=== PATIENT | male | born 1950 | race Caucasian/White ===

== ENCOUNTER 2016-05-16 11:32 | Inpatient (IN) | payer BC ==
[~2016-05-16] VITALS: Ht 175.3 cm; Wt 81.4 kg
[~2016-05-16 11:32] MED LIST: AMLO-114 PO; BUPR150T47 PO; DOCU-94 PO; DRGTP25; DXM/4 PO; ENOX120I SQ; HYDR-5688 PO; MULT-506 PO; NYSS/ PO; OMEGA; ONDA8TAB6 PO; PRLSR20 PO; SPIR50TA2 PO; VITD
[2016-05-16] MEDS ORDERED: PIPERACILLIN/TAZOBACTAM 4.5 GM/100ML D5W IV STA (12:36)
[2016-05-16 13:17] LABS: BASO % 0.5 %; BASO ABS # 0.02 K/uL (0-0.2); COMPLETE YES; EOS % 2.3 %; HEMATOCRIT 35.5 % (42-52); IG% 0.5 %; LYMPH % 13.7 %; LYMPH ABS # 0.54 K/uL (1.2-3.4); MEAN CELL VOLUME 95.7 fL (80-100); MEAN CORPUSCULAR HEMOGLOBIN 31.8 pg (25-34); MEAN CORPUSCULAR HGB CONC 33.2 g/dl (32-36); MEAN PLATELET VOLUME 10.7 fL (7.4-10.4); MONO % 12.2 %; NEUT % 70.8 %; PLATELET COUNT 187 K/uL (130-400); RED BLOOD COUNT 3.71 M/uL (4.7-6.1); WHITE BLOOD COUNT 3.94 K/uL (4.8-10.8)
--- NOTE | 2016-05-16 13:22 | DIAGNOSTIC IMAGING REPORT ---
CHEST ONE VIEW PORTABLE CLINICAL HISTORY: Sepsis COMPARISON STUDY: 05/02/2016 FINDINGS: The cardiac and mediastinal contours are normal. There is no evidence of focal pulmonary consolidation. There is no evidence of failure. No pleural effusions are visualized.[ The previously queried right midlung zone nodule is not visualized. This may have represented a summation IMPRESSION: No active disease in the chest. Electronically signed by: Marc Cooper M.D. 05/16/2016 1:20 PM Dictated Date/Time: 05/16/2016 1:20 PM
[2016-05-16 13:30] LABS: PARTIAL THROMBOPLASTIN RATIO 1.1; PROTHROMBIN TIME (PATIENT) 10.7 SECONDS (9.0-12.0)
[2016-05-16 13:41] LABS: CREATININE 1.2 mg/dl (0.60-1.40)
[2016-05-16 13:42] LABS: BUN/CREATININE RATIO 23.2 (10-20); CALCIUM 9.3 mg/dl (8.5-10.1); POTASSIUM 4.2 mmol/L (3.5-5.1)
[2016-05-16 13:52] LABS: ALB/GLOB RATIO 0.7 (0.9-2); THYROID STIMULATING HORMONE 2.53 uIu/ml (0.300-4.500)
[2016-05-16] MEDS ORDERED: POLYETHYLENE (MIRALAX) 17 GM PACK PO PRN (15:15)
[2016-05-16] MEDS ORDERED: MAGNESIUM HYDROXIDE SUSP 30 ML UDC PO PRN (15:15)
[2016-05-16] MEDS ORDERED: ACETAMINOPHEN 325 MG TAB PO PRN (15:15)
[2016-05-16] MEDS ORDERED: ONDANSETRON INJ 2 MG/ML 2 ML VIAL IV PRN (15:15)
[2016-05-16] MEDS ORDERED: HYDROCODONE/ACETAMOPHEN 5/325MG TAB PO PRN (15:15)
[2016-05-16] MEDS ORDERED: ALUMINUM/MAGNESIUM/SIMETH (MAALOX MAX) 30 ML UDC PO PRN (15:15)
[2016-05-16 15:31] VITALS: O2SAT 96
--- NOTE | 2016-05-16 15:47 | EMERGENCY ROOM VISIT NOTE ---
History Report prepared by Emre: Garrett Noel Under the Supervision of: Dr. Dago Dotson M.D. First contact with patient: 12:31 Chief Complaint: SWELLING TO EXTREMITY Stated Complaint: SWELLING/REDNESS TO BOTH ANKLES History of Present Illness The patient is a 66 year old male who presents to the Emergency Room with complaints of persistent lower extremity erythema and edema starting 5 days ago. He reports constant chills occurring for the past few days. He also complains of an intermittent cough and shortness of breath. He denies any fevers , nausea, vomiting, or any other complaints. The patient is receiving radiation therapy for liver cancer. He is on a blood thinner. Source of History: patient Onset: 5 days ago Position: other (lower extremity) Quality: other (erythema and edema) Timing: other (persistent) Associated Symptoms: + SOB, + chills, + cough, No fevers, No nausea, No vomiting Review of Systems See HPI for pertinent positives & negatives. A total of 10 systems reviewed and were otherwise negative. 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 Family History Cancer Social History Smoking Status: Current Every Day Smoker Alcohol Use: none Drug Use: none Marital Status: Housing Status: lives with family Occupation Status: retired Current/Historical Medications Scheduled Amlodipine (Norvasc), 10 MG PO DAILY Bupropion (Zyban), 150 MG PO BID Docusate Sodium (Colace), 1-2 CAP PO DAILY Enoxaparin (Lovenox), 120 MG SQ DAILY Fentanyl (Fentanyl), PATCH Q72H Multivitamin (Multivitamin), 1 TAB PO DAILY Nystatin (Nystatin Suspension), 5 ML PO QID Omeprazole (Prilosec), 20 MG PO DAILY Spironolactone (Aldactone), 50 MG PO BID [omega 3 with vitD], 1 CAP DAILY Scheduled PRN Hydrocodone/Acetaminophen 5MG/325MG ([place] 5MG/325MG), 1 TABLET PO Q4H PRN for Pain Ondansetron Hcl (Zofran), 8 MG PO Q8 PRN for Nausea Allergies Coded Allergies: No Known Allergies (Verified , 05/16/16) Physical Exam Vital Signs Date Time Temp Pulse Resp B/P Pulse Ox O2 Delivery O2 Flow Rate FiO2 05/16/16 13:48 89 18 115/75 98 Room Air 05/16/16 13:45 98 Room Air 05/16/16 11:39 36.9 87 18 129/71 98 Room Air Physical Exam GENERAL: Patient is in no acute distress. HEENT: No acute trauma, normocephalic atraumatic, mucous membranes moist, no nasal congestion, no scleral icterus. NECK: No stridor, no adenopathy, no meningismus, trachea is midline. LUNGS: Clear to auscultation bilaterally, no wheeze, no rhonchi, breath sounds equal. HEART: Without murmurs gallops or rubs, regular rate and rhythm. ABDOMEN: Soft, nontender, bowel sounds positive, no hernias, no peritonitis. EXTREMITIES: Bilateral pedal edema with bilateral erythema from the feet to just below the knees, no drainage, there is warmth. NEUROLOGIC: Oriented x 3, no acute motor or sensory deficits, no focal weakness. SKIN: No rash, mild jaundice, no diaphoresis. Medical Decision & Procedures ER Provider Diagnostic Interpretation: X-ray results as stated below per interpretation by me and the radiologist: CHEST ONE VIEW PORTABLE CLINICAL HISTORY: Sepsis COMPARISON STUDY: 05/02/2016 FINDINGS: The cardiac and mediastinal contours are normal. There is no evidence of focal pulmonary consolidation. There is no evidence of failure. No pleural effusions are visualized.[ The previously queried right midlung zone nodule is not visualized. This may have represented a summation IMPRESSION: No active disease in the chest. Electronically signed by: Marc Cooper M.D. 05/16/2016 1:20 PM Dictated Date/Time: 05/16/2016 1:20 PM Laboratory Results 05/16/16 13:00 Red Blood Count 3.71, Mean Corpuscular Volume 95.7, Mean Corpuscular Hemoglobin 31.8, Mean Corpuscular Hemoglobin Concent 33.2, Mean Platelet Volume 10.7, Neutrophils (%) (Auto) 70.8, Lymphocytes (%) (Auto) 13.7, Monocytes (%) (Auto) 12.2, Eosinophils (%) (Auto) 2.3, Basophils (%) (Auto) 0.5, Neutrophils # (Auto ) 2.79, Lymphocytes # (Auto) 0.54, Monocytes # (Auto) 0.48, Eosinophils # (Auto ) 0.09, Basophils # (Auto) 0.02 05/16/16 13:00 Test 05/16/16 13:00 05/16/16 13:03 White Blood Count 3.94 K/uL (4.8-10.8) Red Blood Count 3.71 M/uL (4.7-6.1) Hemoglobin 11.8 g/dL (14.0-18.0) Hematocrit 35.5 % (42-52) Mean Corpuscular Volume 95.7 fL (80-100) Mean Corpuscular Hemoglobin 31.8 pg (25-34) Mean Corpuscular Hemoglobin Concent 33.2 g/dl (32-36) Platelet Count 187 K/uL (130-400) Mean Platelet Volume 10.7 fL (7.4-10.4) Neutrophils (%) (Auto) 70.8 % Lymphocytes (%) (Auto) 13.7 % Monocytes (%) (Auto) 12.2 % Eosinophils (%) (Auto) 2.3 % Basophils (%) (Auto) 0.5 % Neutrophils # (Auto) 2.79 K/uL (1.4-6.5) Lymphocytes # (Auto) 0.54 K/uL (1.2-3.4) Monocytes # (Auto) 0.48 K/uL (0.11-0.59) Eosinophils # (Auto) 0.09 K/uL (0-0.5) Basophils # (Auto) 0.02 K/uL (0-0.2) RDW Standard Deviation 57.3 fL (36.4-46.3) RDW Coefficient of Variation 16.7 % (11.5-14.5) Immature Granulocyte % (Auto) 0.5 % Immature Granulocyte # (Auto) 0.02 K/uL (0.00-0.02) Prothrombin Time 10.7 SECONDS (9.0-12.0) Prothromb Time International Ratio 1.0 (0.9-1.1) Activated Partial Thromboplast Time 29.1 SECONDS (21.0-31.0) Partial Thromboplastin Ratio 1.1 Anion Gap 9.0 mmol/L (3-11) Est Creatinine Clear Calc Drug Dose 62.2 ml/min Estimated GFR () 73.6 Estimated GFR (Non- 63.5 BUN/Creatinine Ratio 23.2 (10-20) Calcium Level 9.3 mg/dl (8.5-10.1) Total Bilirubin 1.6 mg/dl (0.2-1) Aspartate Amino Transf (AST/SGOT) 90 U/L (15-37) Alanine Aminotransferase (ALT/SGPT) 226 U/L (12-78) Alkaline Phosphatase 735 U/L (45-117) Total Protein 7.1 gm/dl (6.4-8.2) Albumin 2.9 gm/dl (3.4-5.0) Globulin 4.2 gm/dl (2.5-4.0) Albumin/Globulin Ratio 0.7 (0.9-2) Thyroid Stimulating Hormone (TSH) 2.530 uIu/ml (0.300-4.500) Free Thyroxine 1.07 ng/dl (0.80-1.60) Bedside Lactic Acid Venous 0.81 mmol/L (0.90-1.70) Laboratory results reviewed by me. Medications Administered Medications (Trade) Dose Ordered Sig/Reinaldo Route Start Time Stop Time Status Last Admin Dose Admin Piperacillin Sod/ Tazobactam Sod (Zosyn Iv) 4.5 gm ONE STAT IV 05/16/16 12:36 05/16/16 12:39 DC 05/16/16 13:45 4.5 GM ED Course 1231: The patient was evaluated in room A12B. A complete history and physical exam was performed. 1236: Zosyn IV 4.5 gm IV 1403: Upon reexamination the patient is resting comfortably. I discussed results and treatment plan with the patient. He verbalizes agreement and understanding. The patient will be evaluated for further management. 1415: I discussed the patient's case with Dr. Moss, from [facility]. Medical Decision Differential diagnosis includes but is not limited to sepsis, bacteremia, cellulitis, renal failure, electrolyte imbalance, pneumonia, UTI. Patient's white count is somewhat low, this could be consistent with infection. No worrisome anemia. No significant electrolyte abnormality or kidney failure. A hepatitis was present, this is consistent with his liver malignancy. There was no evidence for pneumonia by chest film, no pneumothorax or CHF. Blood cultures are pending. The patient appears to be in a euthyroid state. No coagulopathy. Lactic acid level is not elevated making severe sepsis less likely. The patient received IV Zosyn for antibiotic coverage. I do think admission/ observation is warranted. The patient has a bilateral cellulitis and requires IV antibiotic therapy. I spoke to the patient and case management. The on- call hospitalist was consulted. Consults Time Called: 1410 Consulting Physician: Dr. Moss, from [facility] Returned Call: 1415 I discussed the patient's case with Dr. Moss, from [facility]. Impression Primary Impression: Bilateral lower leg cellulitis Additional Impressions: Pedal edema Cancer, hepatocellular Scribe Attestation The scribe's documentation has been prepared under my direction and personally reviewed by me in its entirety. I confirm that the note above accurately reflects all work, treatment, procedures, and medical decision making performed by me. Departure Information Dispostion Being Evaluated By Hospitalist Referrals Yoandy Blunt Jr,D.O. (PCP) Patient Instructions My [facility] Problem Qualifiers
--- NOTE | 2016-05-16 15:59 | History and Physical ---
History & Physical Date & Time of Service: May 16, 2016 at 15:29 Chief Complaint: Swelling/Redness To Both Ankles Primary Care Physician: Yoandy Blunt Jr, D.O. History of Present Illness Source: patient, hospital records This is a 66 y/o male with a history of liver cancer with metastasis to bone and brain, HTN, h/o PE, and GERD who presented to the ED on 05/16 with bilateral lower extremity erythema, edema, warmth and tenderness. The patient first noticed erythema and edema in both of his lower legs about 5 days ago. He denies any trauma to the legs. He states that the swelling has become so severe that he's had to cut his socks and pants to fit and not squeeze his legs. He states that his legs are only tender when palpated, especially in the areas of erythema. The patient does have a history of PE and is only daily Lovenox injections at home. He also has a history of liver cancer that recently spread to the spine and brain a few months ago when he went 2-3 months without any sort of treatment. He just recently finished up a course of radiation about 2 weeks ago and is scheduled to start chemotherapy with Opdivo in about 1 month. He states that he has been very "emotional" lately since finding out about the metastasis and will often "cry like a baby" due to everything going on. He declined an offer to be seen by psychiatry or a counselor stating that it wouldn't really change much for him. The patient denies fevers, sweats, chest pain, palpitations, claudication, shortness of breath, nausea, vomiting, abdominal pain, dysuria, hematuria, urinary retention , paralysis, weakness, numbness and tingling. Family History Cancer (colon, prostate, neck (unknown specific type) and blood (unknown specific type)) Diabetes mellitus Heart disease Hypertension Social History Smoking Status: Former Smoker (nothing since New Years Katlyn, used bupropion to quit) Smokeless Tobacco Use: No Alcohol Use: none Drug Use: none Marital Status: Housing status: lives with significant other Occupational Status: retired Multi-Drug Resistant Organisms History of MDRO: No Allergies Coded Allergies: No Known Allergies (Verified , 05/16/16) Home Medications Scheduled Amlodipine (Norvasc), 10 MG PO DAILY Bupropion (Zyban), 150 MG PO BID Docusate Sodium (Colace), 1-2 CAP PO DAILY Enoxaparin (Lovenox), 120 MG SQ DAILY Fentanyl (Fentanyl), PATCH Q72H Multivitamin (Multivitamin), 1 TAB PO DAILY Nystatin (Nystatin Suspension), 5 ML PO QID Omeprazole (Prilosec), 20 MG PO DAILY Spironolactone (Aldactone), 50 MG PO BID [omega 3 with vitD], 1 CAP DAILY Scheduled PRN Hydrocodone/Acetaminophen 5MG/325MG ([place] 5MG/325MG), 1 TABLET PO Q4H PRN for Pain Ondansetron Hcl (Zofran), 8 MG PO Q8 PRN for Nausea Review of Systems Constitutional: + chills (chronic), + fatigue, + weakness, No fever, No sweats Eyes: No diplopia, No eye pain, No worsening of vision ENT: No hearing loss, No sore throat, No trouble swallowing Respiratory: + cough (intermittent since starting radiation weeks ago, improving), + wheezing (intermittent since starting radiation weeks ago, improving), No shortness of breath Cardiovascular: No chest pain, No claudication, No palpitations Abdomen: + problem reported (intermittent heartburn), No nausea, No pain, No vomiting Musculoskeletal: + joint pain (back pain at site of radiation), + swelling, No muscle pain Genitourinary - Male: No dysuria, No hematuria, No urinary retention Neurologic: No numbness/tingling, No paralysis, No weakness Psychiatric: + depression symptoms (crying often), No anxiety, No insomnia Integumentary: + color change (erythema in lower extremities), No itch, No rash Physical Exam Vital Signs Date Time Temp Pulse Resp B/P Pulse Ox O2 Delivery O2 Flow Rate FiO2 05/16/16 13:48 89 18 115/75 98 Room Air 05/16/16 13:45 98 Room Air 05/16/16 11:39 36.9 87 18 129/71 98 Room Air General Appearance: WD/WN, no apparent distress Head: normocephalic, atraumatic Eyes: normal inspection, PERRL, EOMI ENT: normal ENT inspection, hearing grossly normal, pharynx normal Neck: supple, no JVD, trachea midline Respiratory/Chest: lungs clear, normal breath sounds, no respiratory distress Cardiovascular: regular rate, rhythm, no gallop, no murmur Abdomen/GI: normal bowel sounds, non tender, soft Extremities/Musculoskelatal: normal range of motion, + pedal edema (3+ pitting pedal edema bilaterally), + swelling (3+ pitting edema in lower legs, 1+ pitting edema in distal thighs), + pertinent finding (erythema of lower extremities bilaterally from feet to knees) Neurologic/Psych: alert, oriented x 3, + depressed affect (frequent crying during examination, pt states that he sometimes feels better afterwards) Skin: normal color, warm/dry, no rash, + pertinent finding (erythema in lower legs bilaterally) Diagnostics Laboratory Results Results Past 24 Hours Test 05/16/16 13:00 05/16/16 13:03 Range/Units White Blood Count 3.94 4.8-10.8 K/uL Red Blood Count 3.71 4.7-6.1 M/uL Hemoglobin 11.8 14.0-18.0 g/dL Hematocrit 35.5 42-52 % Mean Corpuscular Volume 95.7 80-100 fL Mean Corpuscular Hemoglobin 31.8 25-34 pg Mean Corpuscular Hemoglobin Concent 33.2 32-36 g/dl Platelet Count 187 130-400 K/uL Mean Platelet Volume 10.7 7.4-10.4 fL Neutrophils (%) (Auto) 70.8 % Lymphocytes (%) (Auto) 13.7 % Monocytes (%) (Auto) 12.2 % Eosinophils (%) (Auto) 2.3 % Basophils (%) (Auto) 0.5 % Neutrophils # (Auto) 2.79 1.4-6.5 K/uL Lymphocytes # (Auto) 0.54 1.2-3.4 K/uL Monocytes # (Auto) 0.48 0.11-0.59 K/uL Eosinophils # (Auto) 0.09 0-0.5 K/uL Basophils # (Auto) 0.02 0-0.2 K/uL RDW Standard Deviation 57.3 36.4-46.3 fL RDW Coefficient of Variation 16.7 11.5-14.5 % Immature Granulocyte % (Auto) 0.5 % Immature Granulocyte # (Auto) 0.02 0.00-0.02 K/uL Prothrombin Time 10.7 9.0-12.0 SECONDS Prothromb Time International Ratio 1.0 0.9-1.1 Activated Partial Thromboplast Time 29.1 21.0-31.0 SECONDS Partial Thromboplastin Ratio 1.1 Sodium Level 140 136-145 mmol/L Potassium Level 4.2 3.5-5.1 mmol/L Chloride Level 106 98-107 mmol/L Carbon Dioxide Level 25 21-32 mmol/L Anion Gap 9.0 3-11 mmol/L Blood Urea Nitrogen 28 7-18 mg/dl Creatinine 1.20 0.60-1.40 mg/dl Est Creatinine Clear Calc Drug Dose 62.2 ml/min Estimated GFR () 73.6 Estimated GFR (Non- 63.5 BUN/Creatinine Ratio 23.2 10-20 Random Glucose 100 70-99 mg/dl Calcium Level 9.3 8.5-10.1 mg/dl Total Bilirubin 1.6 0.2-1 mg/dl Aspartate Amino Transf (AST/SGOT) 90 15-37 U/L Alanine Aminotransferase (ALT/SGPT) 226 12-78 U/L Alkaline Phosphatase 735 45-117 U/L Total Protein 7.1 6.4-8.2 gm/dl Albumin 2.9 3.4-5.0 gm/dl Globulin 4.2 2.5-4.0 gm/dl Albumin/Globulin Ratio 0.7 0.9-2 Thyroid Stimulating Hormone (TSH) 2.530 0.300-4.500 uIu/ml Free Thyroxine 1.07 0.80-1.60 ng/dl Bedside Lactic Acid Venous 0.81 0.90-1.70 mmol/L Microbiology Results 05/16/16 Blood Culture, Received Pending 05/16/16 Blood Culture, Received Pending Diagnostic Radiology Reviewed the following studies and agree with interpretation as follows: Patient Name: LAUREN BENAVIDEZ Unit Number: [id number] Dictated: 05/16/161319 Transcribed: 05/16/161319 ARG Printed Date/Time: [~ rep prt dt]/[~ rep prt tm] [~ rep ct labl] - [~ rep ct ivnm] [facility] [place] [address] Dictated: 05/16/161319 Transcribed: 01/13/17 1320 ARG Printed Date/Time: [~ rep prt dt]/[~ rep prt tm] [~ rep ct labl] - [~ rep ct ivnm] Patient: LAUREN BENAVIDEZ Address1: [address] [facility] Rec: [id number] Address2: Acct ID: [id number] [facility] Zip: [place] [address] Date: 1950 Sex: M Room/Bed: Ref Phy: Yoandy Blunt Jr, D.O. SC: [facility] Att Phy: Report #: [id number] Erica Phy: Yoandy Blunt Jr, D.O. Test: CXR1P Admit Phy: Investor Relations Coordinator: FREDIS Interpreting Phy: Marc Cooper M.D. Diagnosis: SWELLING/REDNESS TO BOTH ANKLES Ordering Phy: Dago Dotson M.D. Service Date: 05/16/16 Admit Date: 05/16/16 MNE: [id number] CONF: DICTATED BY: Marc Cooper M.D.]] CC: Dago Dotson M.D. Mooney, Robert B., Jr, D.O. Endcc: [~ rep ct add3]] CHEST ONE VIEW PORTABLE CLINICAL HISTORY: Sepsis COMPARISON STUDY: 05/02/2016 FINDINGS: The cardiac and mediastinal contours are normal. There is no evidence of focal pulmonary consolidation. There is no evidence of failure. No pleural effusions are visualized.[ The previously queried right midlung zone nodule is not visualized. This may have represented a summation IMPRESSION: No active disease in the chest. Electronically signed by: Marc Cooper M.D. 05/16/2016 1:20 PM Dictated Date/Time: 05/16/2016 1:20 PM The status of this report is Signed. Draft = Not yet reviewed or approved by Radiologist. Signed = Reviewed and approved by Radiologist. <AttendingPhy></AttendingPhy> <FamilyPhy>Yoandy Blunt Jr, D.O.</FamilyPhy> < PrimaryPhy>Yoandy Blunt Jr, D.O.</PrimaryPhy> <UnitNumber>[id number]</ UnitNumber> <VisitNumber>[id number]</VisitNumber> <PatientName>LAUREN BENAVIDEZ</ PatientName> <DateOfBirth>1950</DateOfBirth> <Location>[facility]</Location> < ServiceDate>05/16/16</ServiceDate> <MNE>ESINDI</MNE> <OrderingPhy>Dago Dotson M.D.</OrderingPhy> <OrderingPhyMNE>f rep ord dr ny</OrderingPhyMNE> < DictatingPhyMNE>f rep dict dr ny</DictatingPhyMNE> <CCListMNE>f rep ct anant</ CCListMNE> <AdmittingPhyMNE>f pt admit dr ny</AdmittingPhyMNE> <AttendingPhyMNE >f pt attend dr ny</AttendingPhyMNE> <ConsultingPhyMNE>f pt consult dr ny</ConsultingPhyMNE> <FamilyPhyMNE>f pt fam dr ny</FamilyPhyMNE> <OtherPhyMNE>f pt other dr ny</OtherPhyMNE> < PrimaryPhyMNE>f pt prim care dr ny</PrimaryPhyMNE> <ReferringPhyMNE>f pt referring dr ny</ReferringPhyMNE> Impression Assessment and Plan 66 y/o male with a history of liver cancer with metastasis to bone and brain, HTN, h/o PE, and GERD who presented to the ED on 05/16 with bilateral lower extremity erythema, edema, warmth and tenderness x 5 days. Afebrile, VSS. Pt on Lovenox SC at home due to h/o PE and h/o cancer. CXR no acute disease. WBC 3.94. POC lactic acid negative at 0.81. Cellulitis of lower extremities -Admit to med/surg -Clindamycin 600 mg IV q8h as this can be easily switched to PO form -Blood cultures pending x 2 -Slightly dehydrated with BUN of 28, normal creatinine. IV hydration with NSS at 100 cc/hr -Venous Doppler ultrasound of lower extremities to r/o DVT, h/o clots Liver cancer w/mets to brain and bone -No treatment currently, no need for heme/onc consult -LFTs elevated, trend with daily CMP -Hold spironolactone for now while receiving IVF -Continue fentanyl patch 25 mcg TD q72h and [place] 5/325 mg PO 1 tab q4h prn pain HTN--stable -Continue amlodipine 10 mg PO qd GERD -Continue omeprazole 20 mg PO qd Smoking cessation--Pt has not smoked since Katlyn, has been using Zyban to quit -Continue Zyban 150 mg PO BID GI prophylaxis -Maalox Max 15 mL PO q4h prn dyspepsia -Milk of magnesia 30 mL PO q6h prn constipation -Miralax 17 gm PO qd prn constipation -Zofran 4 mg IV q6h prn nausea DVT/PE prophylaxis -Enoxaparin 120 mg SC daily Code Status -Level I, FULL RESUSCITATION STATUS I agree with PA assessment and plan and have personally seen and examined pt myself Resting comfortably in bed Ext - Extensive redness, swelling from foot to knee bilaterally, painful to touc Labs reviewed Will get US of b/l ext and start on IV clindamycin No leukocytosis or fevers Level of Care Med/Surg Resuscitation Status FULL RESUSCITATION VTE Prophylaxis VTE Risk Assessment Done? Y/N: Yes Risk Level: Moderate Given or contraindicated: Enoxaparin (Lovenox)SQ
--- NOTE | 2016-05-16 16:17 | DIAGNOSTIC IMAGING REPORT ---
ULTRASOUND BILATERAL LOWER EXTREMITY VENOUS CLINICAL HISTORY: Lower extremity edema and erythema. COMPARISON STUDY: Right lower extremity venous ultrasound dated 05/02/2016. TECHNIQUE: Real-time, grayscale, and color Doppler sonography of the deep veins of the right and left lower extremity was performed from the inguinal crease to the calf. Compression and augmentation were utilized. FINDINGS: There is no sonographic evidence of deep venous thrombosis identified in the right or left lower extremity. The common femoral, superficial femoral, and popliteal veins are patent and normally compressible bilaterally. The greater saphenous vein and the profunda femoris vein at the junction with the common femoral vein are clear in both legs. The visualized calf veins are patent bilaterally. Again seen is a complex nonvascular collection in the right inner thigh which measures 7.0 x 2.5 x 3.2 cm in today's examination. This has decreased in size from previous and likely represents a resolving hematoma. IMPRESSION: 1. There is no sonographic evidence of deep venous thrombosis identified in the right or left lower extremity. 2. Decrease in size of a complex collection in the right inner thigh as compared to the 05/02/2016 examination. This likely represents a resolving hematoma. Continued clinical follow-up to resolution is recommended. Electronically signed by: Dago Pereira M.D. 05/16/2016 4:15 PM Dictated Date/Time: 05/16/2016 4:13 PM
[2016-05-16 16:50] VITALS: BP 129/74; PULSE 71; TEMP 36.6; Ht 175.3 cm; Wt 81.4 kg
[2016-05-16] MEDS: SODIUM CHLORIDE 0.9% 1000ML 1,000 ML IV SCH (17:24)
[2016-05-16 17:57] LABS: URINE APPEARANCE CLEAR (CLEAR); URINE BILIRUBIN NEG (NEG); URINE COLOR DK YELLOW; URINE EPITHELIAL CELL AUTO 0-5 /lpf (0-5); URINE NITRITE NEG (NEG); URINE PH 7.5 (4.5-7.5); URINE SPECIFIC GRAVITY 1.021 (1.000-1.030); UROBILINOGEN NEG (NEG); ZZUR CULT IF INDIC CLEAN CATCH NO
[2016-05-16 18:17] LABS: MANUAL MICROSCOPIC REQUIRED? NO; REVIEW REQ? NO
[2016-05-16] MEDS ORDERED: FENTANYL PATCH REMOVE & WASTE SCH (18:59)
[2016-05-16] MEDS ORDERED: FENTANYL 25 MCG/HR TDSY TD SCH (19:00)
[2016-05-16] MEDS: CLINDAMYCIN IV 600 MG in DEXTROSE 5% ADD-VANTAGE 50ML 50 ML IV SCH (19:56)
[2016-05-16] MEDS: BuPROPion SR 150 MG TABCR PO SCH (19:56)
[2016-05-16] MEDS ORDERED: ENOXAPARIN 120 MG/0.8 ML SYR SQ SCH (20:00)
[2016-05-16 20:41] VITALS: BP 111/64; PULSE 71; TEMP 37.1; O2SAT 95
[2016-05-16 23:36] VITALS: BP 108/56; PULSE 95; TEMP 37.2; O2SAT 95
[2016-05-17] MEDS ORDERED: COUGH DROP (SUGAR FREE) LOZ 24 LOZ/1 BOX PO PRN
[2016-05-17] MEDS: CHECK FENTANYL PATCH PLACEMENT SCH ×3 (00:03→15:08)
[2016-05-17] MEDS ORDERED: COUGH DROP (SUGAR FREE) LOZ 24 LOZ/1 BOX ONE (00:05)
[2016-05-17] MEDS: SODIUM CHLORIDE 0.9% 1000ML 1,000 ML IV SCH ×2 (03:15→13:40)
[2016-05-17] MEDS: CLINDAMYCIN IV 600 MG in DEXTROSE 5% ADD-VANTAGE 50ML 50 ML IV SCH ×2 (03:48→12:38)
[2016-05-17 04:19] VITALS: BP 108/62; PULSE 75; TEMP 37.1; O2SAT 98
[2016-05-17 06:48] LABS: BASO % 0.6 %; BASO ABS # 0.02 K/uL (0-0.2); COMPLETE YES; EOS % 2.5 %; HEMATOCRIT 30.4 % (42-52); IG% 0.6 %; LYMPH % 10.9 %; LYMPH ABS # 0.39 K/uL (1.2-3.4); MEAN CELL VOLUME 96.5 fL (80-100); MEAN CORPUSCULAR HEMOGLOBIN 32.7 pg (25-34); MEAN CORPUSCULAR HGB CONC 33.9 g/dl (32-36); MEAN PLATELET VOLUME 10.2 fL (7.4-10.4); MONO % 13.7 %; NEUT % 71.7 %; PLATELET COUNT 157 K/uL (130-400); RED BLOOD COUNT 3.15 M/uL (4.7-6.1); WHITE BLOOD COUNT 3.57 K/uL (4.8-10.8)
[2016-05-17 07:33] LABS: CALCIUM 8.2 mg/dl (8.5-10.1); CREATININE 1.1 mg/dl (0.60-1.40); POTASSIUM 4.2 mmol/L (3.5-5.1)
[2016-05-17 07:40] LABS: ALB/GLOB RATIO 0.6 (0.9-2)
[2016-05-17 07:53] VITALS: BP 124/70; PULSE 73; TEMP 36.8; O2SAT 98
[2016-05-17] MEDS ORDERED: PANTOprazole SOD 40 MG TAB PO SCH (08:00)
[2016-05-17] MEDS ORDERED: DOCUSATE SODIUM 100 MG CAP PO SCH (08:00)
[2016-05-17] MEDS ORDERED: MULTIVITAMIN TAB PO SCH (08:00)
[2016-05-17] MEDS: BuPROPion SR 150 MG TABCR PO SCH (08:00)
[2016-05-17] MEDS ORDERED: AMLODIPINE BESYLATE 5 MG TAB PO SCH (08:00)
[2016-05-17 12:09] VITALS: BP 116/70; PULSE 77; TEMP 36.8; O2SAT 96
[2016-05-17 16:12] VITALS: BP 163/71; PULSE 59; TEMP 37; O2SAT 95
[2016-05-17] MEDS ORDERED: CLIN300C2 PO (16:47)
--- NOTE | 2016-05-17 16:50 | Discharge Instructions ---
Discharge Instructions Admission Reason for Admission: Cellulitis Discharge Discharge Diagnosis / Problem: leg cellulitis Discharge Goals Goal(s): Diagnostic testing, Therapeutic intervention Activity Recommendations Activity Limitations: resume your previous activity . Instructions / Follow-Up Instructions / Follow-Up take the clindamycin three times a day for the next ten days; follow up with Dr Blunt not only thursday but until this all resolves - he'll be able to help community outreach manager if you'll need a longer course of antibiotics Current Hospital Diet Patient's current hospital diet: AHA Diet (Heart Healthy) Discharge Diet Recommended Diet: AHA Diet (Heart Healthy) Pending Studies Studies pending at discharge: no List of pending studies: blood cultures are still going to be in the microbiology lab - they grow them for five days, but the cultures are showing nothing so far, and we do not expect them to have growth Medical Emergencies . Who to Call and When: Medical Emergencies: If at any time you feel your situation is an emergency, please call 911 immediately. . Non-Emergent Contact Non-Emergency issues call your: Primary Care Provider . . "Provider Documentation" section prepared by Ernesto Beatty. VTE Core Measure Inpt VTE Proph given/why not?: Enoxaparin (Lovenox)SQ
--- NOTE | 2016-05-17 17:07 | Discharge Summary ---
Discharge Summary Admission Date: May 16, 2016 at 15:28 Discharge Date: May 17, 2016 Discharge Disposition: Home Principal Diagnosis: b/l LE cellulitis Procedures: CHEST ONE VIEW PORTABLE CLINICAL HISTORY: Sepsis COMPARISON STUDY: 05/02/2016 FINDINGS: The cardiac and mediastinal contours are normal. There is no evidence of focal pulmonary consolidation. There is no evidence of failure. No pleural effusions are visualized.[ The previously queried right midlung zone nodule is not visualized. This may have represented a summation IMPRESSION: No active disease in the chest. Electronically signed by: Marc Cooper M.D. 05/16/2016 1:20 PM Dictated Date/Time: 05/16/2016 1:20 PM ULTRASOUND BILATERAL LOWER EXTREMITY VENOUS CLINICAL HISTORY: Lower extremity edema and erythema. COMPARISON STUDY: Right lower extremity venous ultrasound dated 05/02/2016. TECHNIQUE: Real-time, grayscale, and color Doppler sonography of the deep veins of the right and left lower extremity was performed from the inguinal crease to the calf. Compression and augmentation were utilized. FINDINGS: There is no sonographic evidence of deep venous thrombosis identified in the right or left lower extremity. The common femoral, superficial femoral, and popliteal veins are patent and normally compressible bilaterally. The greater saphenous vein and the profunda femoris vein at the junction with the common femoral vein are clear in both legs. The visualized calf veins are patent bilaterally. Again seen is a complex nonvascular collection in the right inner thigh which measures 7.0 x 2.5 x 3.2 cm in today's examination. This has decreased in size from previous and likely represents a resolving hematoma. IMPRESSION: 1. There is no sonographic evidence of deep venous thrombosis identified in the right or left lower extremity. 2. Decrease in size of a complex collection in the right inner thigh as compared to the 05/02/2016 examination. This likely represents a resolving hematoma. Continued clinical follow-up to resolution is recommended. Electronically signed by: Dago Pereira M.D. 05/16/2016 4:15 PM Dictated Date/Time: 05/16/2016 4:13 PM Last Resulted CBC 05/17/16 06:34 Red Blood Count 3.15, Mean Corpuscular Volume 96.5, Mean Corpuscular Hemoglobin 32.7, Mean Corpuscular Hemoglobin Concent 33.9, Mean Platelet Volume 10.2, Neutrophils (%) (Auto) 71.7, Lymphocytes (%) (Auto) 10.9, Monocytes (%) (Auto) 13.7, Eosinophils (%) (Auto) 2.5, Basophils (%) (Auto) 0.6, Neutrophils # (Auto ) 2.56, Lymphocytes # (Auto) 0.39, Monocytes # (Auto) 0.49, Eosinophils # (Auto ) 0.09, Basophils # (Auto) 0.02 Last Resulted BMP 05/17/16 06:34 Hospital Course Cellulitis of lower extremities -no sepsis -improved on IV clinda - transition to PO and treat for another ten days +/- depending on PCP f/u (sees again thursday) Liver cancer w/mets to brain and bone -ongoing outpt f/u - already scheduled HTN--stable -Continue amlodipine 10 mg PO qd GERD -Continue omeprazole 20 mg PO qd Smoking cessation--Pt has not smoked since , has been using Zyban to quit -Continue Zyban 150 mg PO BID DVT/PE -Enoxaparin 120 mg SC daily stable for discharge, already has PCP appt thursday Total Time Spent: Less than 30 minutes This includes examination of the patient, discharge planning, medication reconciliation, and communication with other providers. Discharge Instructions Please refer to the electronic Patient Visit Report (Discharge Instructions) for additional information.
[2016-05-17 17:12] VITALS: BP 163/71; PULSE 59; TEMP 37; O2SAT 95
[2016-05-17] MEDS ORDERED: CLINDAMYCIN HCL 150 MG CAP PO ONE (17:15)
== END 2016-05-17 18:00 | disposition home or self-care (01) | DRG 603 ==
LOC: ENRESERVTM → ENRESERVDT → C.EDB 11:34 → C.4E 15:28
PROVIDERS: ADMIT Hospitalist; ATTEND Family Medicine
DX: L03.116 Cellulitis of left lower limb (principal); C79.31 Secondary malignant neoplasm of brain; C79.51 Secondary malignant neoplasm of bone; C22.9 Malignant neoplasm of liver, not specified as primary or secondary; K21.9 Gastro-esophageal reflux disease without esophagitis; E86.0 Dehydration; I10 Essential (primary) hypertension; Z87.891 Personal history of nicotine dependence; Z86.711 Personal history of pulmonary embolism; Z80.0 Family history of malignant neoplasm of digestive organs; Z80.42 Family history of malignant neoplasm of prostate; Z83.3 Family history of diabetes mellitus; Z82.49 Family history of ischemic heart disease and other diseases of the circulatory system

== ENCOUNTER → 2016-06-05 | Outpatient (CLI) | payer BC ==
[~2016-06-05] MED LIST changes: -DXM/4 PO
[2016-06-05 13:40] VITALS: BP 124/82; PULSE 80; TEMP 36.6; O2SAT 97
--- NOTE | 2016-06-06 08:19 | Radiation Oncology Follow-Up ---
Radiation Oncology Follow-Up Date of Visit Jun 05, 2016. 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 Status post completion of radiation therapy 05/07/2016 received 3000 cGy. Last Edited By: Sharon Dyson on Jun 06, 2016 08:14 History of Present Illness Mr. Hood is a 66-year-old male who was found to have hepatitis C viral infection diagnosed in 1998 and hepatic cirrhosis. A CT scan of the abdomen in June 2011 was obtained because of elevated alpha-fetoprotein. This revealed a 1.4 cm heterogeneous hypointense lesion suspicious for a hepatocellular carcinoma. This was clinically staged as a T1 N0 M0. Ultimately the patient went on to have systemic chemotherapy with TACE 3 on , 01/09/2014 and 09/13/2014. Patient was scheduled for a liver transplant on 05/08/[address] Morgan. However this was aborted due to the findings of multiple satellite nodules and segments 5, 8, for a, 4B and 3 of the liver. A repeat CT scan from 06/13/2015 showed recurrent hepatocellular carcinoma would likely tumor involvement of the portal vein. The patient again was treated with TACE on 06/26/2015. Follow-up CT scans from 08/13/2015 showed improvement in the multifocal hepatocellular carcinoma the right hepatic lobe and stable hepatocellular carcinoma in the left hepatic lobe. The disease in the dome of the liver however was worsened. The patient' s AFP was rising. Patient was therefore started on Nexavar 200 mg on 06/22/2015. Unfortunately developed painful skin lesions on the face and this was discontinued. The lesions improved and he was restarted without further skin reaction. Patient underwent a right TACE on 09/11/2015. Follow-up CT scan on 10/17/2015 showed persistent residual hepatocellular carcinoma. He underwent a right TACE on November 082015 and the left TACE on 12/25/2015. Follow-up CT scans on 01/29/2016 showed new pulmonary nodules, pericardial phrenic and retroperitoneal lymphadenopathy, enlarged hepatic lesions, new tumor thrombus in the left portal vein and new pulmonary embolism. His serum AFP-liver was persistently rising. He was started on Lovenox for pulmonary embolism. The Nexavar was discontinued and the patient was screened from enrollment into the [employer] clinical trial using trans-drug doxorubicin. He was randomized to group 3 (best standard of care) More recently the patient developed increasing back pain and noted a soft tissue nodule on the back of his skull. He underwent scans at [facility]. A skull film taken on 03/21/2016 showed a lucency projecting over the occipital bone on lateral projection measuring 2.[address] scan of the head was recommended and performed. Thoracic spine imaging for back pain showed no acute fractures and moderate degenerative changes. Noncontrast head CT scan on April 04 showed a midline occipital lytic defect with subcutaneous soft tissue component and potential extension to the posterior interhemispheric region. MRI of the brain followed on 04/15/2016. This showed a destructive mass lesion demonstrating destruction of the occipital bone immediately adjacent to the interhemispheric fissure. This potentially created an effect upon the occipital lobe with possible direct extension to the brain itself. A somewhat exophytic 6 mm inferior extension of the mass was noted. CT scan of the neck on April 16 showed a destructive lytic lesion in the skull but no cervical spine abnormalities. CT scan of the chest showed multiple bilateral pulmonary nodules with mildly enlarging anterior diaphragmatic lymph nodes and destructive bony lesions. A moderate central depression was noted within the T4 vertebral body consistent with a pathologic compression fracture. There was an associated paraspinal and epidural soft tissue extension of the tumor with the posterior cortex soft tissue expansion measuring 4 mm resulting in moderate central canal narrowing. An additional destructive soft tissue mass is noted at the T10 level with associated pathologic fracture and mild compression. There was associated epidural/posterior soft tissue extension from the vertebral body which measures up to 8 mm in thickness resulting in severe central canal narrowing at this level. There is irregular appearance to the cortex of the right anterior sixth rib concerning for metastatic lesion. CT scan of the abdomen and pelvis showed progressive metastatic disease within the liver and multiple hypodensities present throughout the right as well left hepatic lobe. There were several small developing abdominal nodes of concern for progressive metastatic disease. Patient was seen at [facility] and admitted. He was started on IV Decadron with dramatic improvement in his pain. He was given oral pain medication and seen by Dr. Jade for consideration of palliative radiation. He reviewed all the images and felt that the MRI raised the likely possibility of leptomeningeal involvement. He recommended consideration of palliative radiation to T4 and T10. The cord impingement as well as consideration of whole brain radiation because of the possibility of leptomeningeal involvement. Dr. Jade contacted me by phone yesterday and discussed the case with me and we discussed initiation of palliative radiation. Interim History Over the past month he has had decreased discomfort in his back with completion of treatment. He does continue to use a fentanyl patch 25 g per hour. The amount of breakthrough pain medication has greatly decreased. For the most part he takes this approximately every other day. Sometimes will take it in the evening to help him sleep. When he is up and walking he has no back pain. He does have some discomfort which she gives a level III with getting up and sitting down. He was recently hospitalized with cellulitis in the lower extremities. From May 11 the . This resolved with antibiotic therapy. He does have some feelings of heartburn. He is going to use Mylanta for this. She'll be seeing Dr. Griggs. He'll continue with chemotherapy. Allergies Coded Allergies: No Known Allergies (Verified , 05/16/16) Home Medications Scheduled Amlodipine (Norvasc), 10 MG PO DAILY Bupropion (Zyban), 150 MG PO BID Enoxaparin (Lovenox), 120 MG SQ DAILY Fentanyl (Fentanyl), PATCH Q72H Multivitamin (Multivitamin), 1 TAB PO DAILY Omeprazole (Prilosec), 20 MG PO DAILY Spironolactone (Aldactone), 50 MG PO BID [omega 3 with vitD], 1 CAP DAILY Scheduled PRN Ondansetron Hcl (Zofran), 8 MG PO Q8 PRN for Nausea Review of Systems Gastrointestinal: Symptoms: Indigestion GI Comments: Gets bad indigestion at times that takes breath away Oral: Symptoms: No Problems Other Oral Symptoms: trouble swallow large pills (can if has milkshake) Respiratory: Symptoms: WNL Urinary: Symptoms: Frequency Comments: Stream seems weaker and "not as much pee" as it used to be Skin: Symptoms: No Problems Additional Notes: He completed a distress management report and answered "no" to all questions. Physical Exam Vital Signs Date Time Temp Pulse Resp B/P Pulse Ox O2 Delivery O2 Flow Rate FiO2 06/05/16 13:40 36.6 80 16 124/82 97 Pain: Side: Bilateral Patient Pain Scale: 0 - 10 Initial Pain Intensity: 3.0 Pain Description: Stabbing, Sharp Additional Comments: gets worse with muscle manipulation, bending over, getting up and down Fatigue: Mild General Appearance: no apparent distress, + pertinent finding (alopecia) Eyes: normal inspection, EOMI ENT: hearing grossly normal Neck: no adenopathy, thyroid normal Respiratory/Chest: lungs clear, no respiratory distress, no accessory muscle use Cardiovascular: regular rate, rhythm, no gallop, no murmur Abdomen: non tender, soft Extremities: + pedal edema Neurologic/Psychiatric: no motor/sensory deficits, alert, normal mood/affect Skin: warm/dry Laboratory Studies Test 03/13/16 16:41 03/21/16 13:22 04/21/16 16:15 05/02/16 16:05 Iron Level 73 mcg/dl (35-175) Transferrin 217 mg/dl (200-360) Transferrin % Saturation 24 % (20-50) Ferritin 383.8 ng/ml (8.0-388.0) Direct Bilirubin 0.6 mg/dl (0-0.2) 0.5 mg/dl (0-0.2) Ammonia < 10.0 umol/L (11-32) Vitamin B12 Level 685 pg/mL (211-911) Folate 9.62 ng/mL (>5.38) Thyroid Stimulating Hormone (TSH) 1.110 uIu/ml (0.300-4.500) Hypersegmented Polys 1+ Prothrombin Time 11.0 SECONDS (9.0-12.0) Prothrombin Time INR 1.0 (0.9-1.1) PTT 25.7 SECONDS (21.0-31.0) Partial Thromboplastin Ratio 1.0 Heparin Anti-Xa Act, Low Molec Wt 0.58 IU/ML (0 - <0.10) Test 05/16/16 00:00 05/16/16 13:00 1/13/17 13:03 05/17/16 06:34 Urine Color DK YELLOW Urine Appearance CLEAR (CLEAR) Urine pH 7.5 (4.5-7.5) Urine Specific [place] 1.021 (1.000-1.030) Urine Protein NEG (NEG) Urine Glucose (UA) NEG (NEG) Urine Ketones NEG (NEG) Urine Occult Blood NEG (NEG) Urine Nitrite NEG (NEG) Urine Bilirubin NEG (NEG) Urine Urobilinogen NEG (NEG) Urine Leukocyte Esterase NEG (NEG) Urine WBC (Auto) 1-5 /hpf (0-5) Urine RBC (Auto) 0-4 /hpf (0-4) Urine Hyaline Casts (Auto) 0 /lpf (0-5) Urine Epithelial Cells (Auto) 0-5 /lpf (0-5) Urine Bacteria (Auto) NEG (NEG) White Blood Count 3.94 K/uL (4.8-10.8) 3.57 K/uL (4.8-10.8) Red Blood Count 3.71 M/uL (4.7-6.1) 3.15 M/uL (4.7-6.1) Hemoglobin 11.8 g/dL (14.0-18.0) 10.3 g/dL (14.0-18.0) Hematocrit 35.5 % (42-52) 30.4 % (42-52) Mean Corpuscular Volume 95.7 fL (80-100) 96.5 fL (80-100) Mean Corpuscular Hemoglobin 31.8 pg (25-34) 32.7 pg (25-34) Mean Corpuscular Hemoglobin Concent 33.2 g/dl (32-36) 33.9 g/dl (32-36) Platelet Count 187 K/uL (130-400) 157 K/uL (130-400) Mean Platelet Volume 10.7 fL (7.4-10.4) 10.2 fL (7.4-10.4) Neutrophils (%) (Auto) 70.8 % 71.7 % Lymphocytes (%) (Auto) 13.7 % 10.9 % Monocytes (%) (Auto) 12.2 % 13.7 % Eosinophils (%) (Auto) 2.3 % 2.5 % Basophils (%) (Auto) 0.5 % 0.6 % Neutrophils # (Auto) 2.79 K/uL (1.4-6.5) 2.56 K/uL (1.4-6.5) Lymphocytes # (Auto) 0.54 K/uL (1.2-3.4) 0.39 K/uL (1.2-3.4) Monocytes # (Auto) 0.48 K/uL (0.11-0.59) 0.49 K/uL (0.11-0.59) Eosinophils # (Auto) 0.09 K/uL (0-0.5) 0.09 K/uL (0-0.5) Basophils # (Auto) 0.02 K/uL (0-0.2) 0.02 K/uL (0-0.2) RDW Standard Deviation 57.3 fL (36.4-46.3) 58.1 fL (36.4-46.3) RDW Coefficient of Variation 16.7 % (11.5-14.5) 16.6 % (11.5-14.5) Immature Granulocyte % (Auto) 0.5 % 0.6 % Immature Granulocyte # (Auto) 0.02 K/uL (0.00-0.02) 0.02 K/uL (0.00-0.02) Prothrombin Time 10.7 SECONDS (9.0-12.0) Prothrombin Time INR 1.0 (0.9-1.1) PTT 29.1 SECONDS (21.0-31.0) Partial Thromboplastin Ratio 1.1 Sodium Level 140 mmol/L (136-145) 141 mmol/L (136-145) Potassium Level 4.2 mmol/L (3.5-5.1) 4.2 mmol/L (3.5-5.1) Chloride Level 106 mmol/L (98-107) 109 mmol/L (98-107) Carbon Dioxide Level 25 mmol/L (21-32) 21 mmol/L (21-32) Anion Gap 9.0 mmol/L (3-11) 11.0 mmol/L (3-11) Blood Urea Nitrogen 28 mg/dl (7-18) 23 mg/dl (7-18) Creatinine 1.20 mg/dl (0.60-1.40) 1.10 mg/dl (0.60-1.40) Est Creatinine Clear Calc Drug Dose 62.2 ml/min 67.9 ml/min Estimated GFR () 73.6 81.8 Estimated GFR (Non- 63.5 70.6 BUN/Creatinine Ratio 23.2 (10-20) 21.0 (10-20) Random Glucose 100 mg/dl (70-99) 107 mg/dl (70-99) Calcium Level 9.3 mg/dl (8.5-10.1) 8.2 mg/dl (8.5-10.1) Total Bilirubin 1.6 mg/dl (0.2-1) 1.5 mg/dl (0.2-1) Aspartate Amino Transferase (AST) 90 U/L (15-37) 72 U/L (15-37) Alanine Aminotransferase (ALT) 226 U/L (12-78) 170 U/L (12-78) Alkaline Phosphatase 735 U/L (45-117) 583 U/L (45-117) Total Protein 7.1 gm/dl (6.4-8.2) 5.6 gm/dl (6.4-8.2) Albumin 2.9 gm/dl (3.4-5.0) 2.2 gm/dl (3.4-5.0) Globulin 4.2 gm/dl (2.5-4.0) 3.4 gm/dl (2.5-4.0) Albumin/Globulin Ratio 0.7 (0.9-2) 0.6 (0.9-2) Thyroid Stimulating Hormone (TSH) 2.530 uIu/ml (0.300-4.500) Free Thyroxine 1.07 ng/dl (0.80-1.60) POC Lactic Acid Venous 0.81 mmol/L (0.90-1.70) Total Time In Follow-Up Plan: He continues regular follow-up with his primary care provider and Dr. Griggs in [place]. He does have an upcoming appointment. There is plan for him to continue on with his chemotherapy. A follow-up appointment with our office was not given. He may call if he has any questions or concerns we'll be happy to see him. He also return if directed by Dr. Griggs. Recheck scanning her Dr. Griggs. Copy To Yoandy Blunt Jr,D.O.; Alfonso Griggs M.D.
== END | disposition home or self-care (01) ==
LOC: C.ONC 13:19
PROVIDERS: ATTEND Radiology Radiation Oncology
DX: Z08 Encounter for follow-up examination after completed treatment for malignant neoplasm (principal); Z92.3 Personal history of irradiation; Z85.841 Personal history of malignant neoplasm of brain

== ENCOUNTER → 2016-06-25 | Outpatient (CLI) | payer BC ==
[~2016-06-25] MED LIST changes: -DOCU-94 PO; -HYDR-5688 PO; -NYSS/ PO; +OPTIRAY 320 IV PRN
--- NOTE | 2016-06-25 13:34 | DIAGNOSTIC IMAGING REPORT ---
CT ABD/PELVIS COMBO CLINICAL HISTORY: Metastatic hepatocellular carcinoma. COMPARISON STUDY: 04/16/2016 TECHNIQUE: Unenhanced images were obtained through the upper abdomen. Patient was then scanned in a dynamic helical fashion during intravenous administration of 93 cc of Optiray 320. 32 sec. and [address] DOSE: FINDINGS: Lower chest: There are multiple scattered subcentimeter pulmonary nodules. These are larger and more numerous than on the preceding study. The findings are viewed as suspicious for metastatic disease. Liver: There are multiple hypodense hepatic lesions, consistent with metastatic disease versus multifocal hepatocellular carcinoma. There is developing right lobe capsular retraction. There is a stable calcification within the right hepatic lobe. There is persistent portal vein thrombus. An index hepatic mass in the right hepatic lobe currently measures 37 x 16 mm. This lesion previously measured 42 x 21 mm. There is developing perihepatic fluid. Gallbladder: Not visualized with certainty Spleen: Normal in size and attenuation. Pancreas: Unremarkable. Adrenal glands: There is persistent left adrenal gland thickening Kidneys: There is a stable upper pole left renal cyst. No solid renal masses are visualized. There is no hydronephrosis Bowel: There are no transition zones indicate bowel obstruction. There is colonic diverticulosis. There are no acute peridiverticular inflammatory changes. There is colonic wall thickening most pronounced involving the ascending colon, consistent with a colitis Peritoneum: There is no free air. There is a small amount of free pelvic fluid. There is fluid in the arielle hepatis. Vasculature: The abdominal aorta is normal in course and caliber. Adenopathy: There are borderline enlarged aortocaval lymph nodes, similar to the preceding study. Pelvic viscera: The bladder, and pelvic viscera are unremarkable. Skeletal structures: There is a pathologic T10 compression fracture. IMPRESSION: 1. Interval increase in the size and number of the multiple bilateral pulmonary nodules, consistent with progressive pulmonary metastasis 2. Multiple hepatic hypodense lesions, consistent with metastatic disease versus multifocal hepatocellular carcinoma. A targeted right lobe lesion is slightly smaller than the prior study 3. Interval development of hepatic capsular retraction and perihepatic fluid 4. Persistent portal vein thrombus 5. Interval development of colonic wall thickening, consistent with a colitis 6. Diverticulosis 7. No evidence of bowel obstruction. No evidence of free air 8. Pathologic T10 compression deformity, with suspected epidural tumor Electronically signed by: Marc Cooper M.D. 06/25/2016 1:32 PM Dictated Date/Time: 06/25/2016 1:19 PM
--- NOTE | 2016-06-25 13:40 | DIAGNOSTIC IMAGING REPORT ---
CT OF THE CHEST WITH IV CONTRAST CLINICAL HISTORY: Metastatic hepatocellular carcinoma. COMPARISON STUDY: Chest CT April 16, 2016 and chest radiograph May 16, 2016. TECHNIQUE: Following IV administration of 93 mL of Optiray-320, helical axial images of the chest were obtained. Images were viewed in the axial, sagittal and coronal planes. IV contrast was administered without complication. The abdomen and pelvis CT will be reported separately. CT DOSE: 891.69 mGy.cm FINDINGS: The size of the heart is normal. Numerous segmental pulmonary emboli are again noted. The majority of these were shown on exam of April 16, 2016. However, a segmental embolus within the left lower lobe shown on image 193 of 322 was not evident on prior exam. There is no central pulmonary embolus. There is no pericardial effusion. Central airways are patent. There has been increase in size and number of innumerable pulmonary nodules since exam of April 16, 2016. A 1.3 cm right lower lobe nodule shown image 191 previously measured 1 cm. There is no pneumothorax or pleural effusion. Pathologic T4 and T10 fractures are again noted. Vertebral body height loss has increased since exam of April 16, 2016. Retropulsion is noted at these levels with possible extension of tumor into the epidural space. At least moderate narrowing of the central canal at these 2 levels is similar to prior exam. Evaluation of treatment response within these osseous metastases is difficult. Multiple hepatic lesions are better depicted on the CT of the abdomen and pelvis. IMPRESSION: 1. Moderate increase in size and number of innumerable pulmonary metastases since exam of April 16, 2016 consistent with progression of metastatic disease. 2. Interval increase in vertebral body height loss of the known T4 and T10 pathologic fractures. Retropulsion with suspected epidural extension of tumor results in moderate narrowing of the central canal at these 2 levels which is likely similar to prior exam. Evaluation of tumor response within these osseous metastases is difficult. 3. Multiple segmental pulmonary emboli, the majority of which were present on exam of April 16, 2016. A small left lower lobe segmental embolus is new since prior exam. No central pulmonary emboli. 4. Multiple hepatic lesions which are better depicted on the CT of the abdomen and pelvis. Electronically signed by: Xander Strange M.D. 06/25/2016 1:39 PM Dictated Date/Time: 06/25/2016 1:22 PM
== END | disposition home or self-care (01) ==
LOC: C.CTS 12:35
PROVIDERS: ATTEND Internal Medicine Hematology & Oncology
DX: C22.0 Liver cell carcinoma (principal); R91.8 Other nonspecific abnormal finding of lung field; K57.90 Diverticulosis of intestine, part unspecified, without perforation or abscess without bleeding; M84.48XA Pathological fracture, other site, initial encounter for fracture

== ENCOUNTER → 2016-06-26 | Outpatient (CLI) | payer BC ==
--- NOTE | 2016-06-26 08:12 | DIAGNOSTIC IMAGING REPORT ---
CT OF THE HEAD WITH AND WITHOUT CONTRAST CT DOSE: 1074.96 mGy.cm CLINICAL HISTORY: Metastatic hepatocellular carcinoma. TECHNIQUE: Axial images of the head were obtained before and after intravenous ministration of 92 cc Optiray 320 IV. COMPARISON STUDY: Head CT April 04, 2016 and MRI of the brain April 15, 2016. FINDINGS: The destructive calvarial lesion within the occipital bone is again noted. Intracranial extension has increased since prior exam of April 15, 2016. Intracranial component measures 4.1 x 2.2 cm and demonstrates avid enhancement. It previously measured 3.7 x 1.9 cm. Associated vasogenic edema within the left occipital lobe has developed. The extracranial component is also increased. There is mild mass effect. The ventricular system is stable. The basilar cisterns are patent. There are no findings to suggest acute dural sinus thrombosis or acute territorial infarct. Note is made of a lytic lesion within the left frontal bone measuring approximately 2.6 cm shown on axial image 16 of 20. This was not evident on MRI of April 15, 2016. Visualized portions of the sinuses and mastoid air cells are clear. IMPRESSION: 1. Increase in size of the destructive calvarial occipital bone lesion with moderate increase in size of the intracranial component since MRI of April 15, 2016 and interval development of mild vasogenic edema within the left occipital lobe. 2. 2.6 cm left frontal bone calvarial lesion suggestive of an additional metastasis. Electronically signed by: Xander Strange M.D. 06/26/2016 8:11 AM Dictated Date/Time: 06/26/2016 7:55 AM
== END | disposition home or self-care (01) ==
LOC: C.CTS 07:31
PROVIDERS: ATTEND Internal Medicine Hematology & Oncology
DX: C22.0 Liver cell carcinoma (principal)

== ENCOUNTER 2016-07-04 01:55 | Emergency (ER) | payer BC ==
[~2016-07-04] VITALS: Ht 175.3 cm; Wt 70.9 kg
[~2016-07-04 01:55] MED LIST changes: -OPTIRAY 320 IV PRN
[2016-07-04 01:56] VITALS: BP 142/77; PULSE 80; TEMP 36.8; O2SAT 99; Ht 175.3 cm; Wt 70.9 kg
--- NOTE | 2016-07-04 02:33 | EMERGENCY ROOM VISIT NOTE ---
History First contact with patient: 02:10 Chief Complaint: FACIAL PAIN/INJURY Stated Complaint: JAW PAIN History of Present Illness The patient is a 66 year old male who presents to the Emergency Room with complaints of jaw dislocation. The patient reports that he was yawning and dislocated his jaw approximately 9 hours ago. He has dislocated his jaw in the past and states that he is usually able to put it back in himself, but was unable to tonight. He rates his discomfort a 5/10. He denies any other injuries. He denies any trauma. Review of Systems A complete 6 point review of systems was reviewed with the patient with pertinent positives and negatives as per history of present illness. All else were negative. 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 Family History Cancer (colon, prostate, neck (unknown specific type) and blood (unknown specific type)) Diabetes mellitus Heart disease Hypertension Social History Smoking Status: Former Smoker Alcohol Use: none Drug Use: none Marital Status: Housing Status: lives with family Occupation Status: retired Current/Historical Medications Scheduled Amlodipine (Norvasc), 10 MG PO DAILY Bupropion (Zyban), 150 MG PO BID Enoxaparin (Lovenox), 120 MG SQ DAILY Fentanyl (Fentanyl), PATCH Q72H Multivitamin (Multivitamin), 1 TAB PO DAILY Omeprazole (Prilosec), 20 MG PO DAILY Spironolactone (Aldactone), 50 MG PO BID Scheduled PRN Ondansetron Hcl (Zofran), 8 MG PO Q8 PRN for Nausea Allergies Coded Allergies: No Known Allergies (Verified , 07/04/16) Physical Exam Vital Signs Date Time Temp Pulse Resp B/P Pulse Ox O2 Delivery O2 Flow Rate FiO2 07/04/16 01:56 36.8 80 16 142/77 99 Room Air Physical Exam VITALS: Vitals are noted on the nurse's note and reviewed by myself. Vital signs stable. HEENT: Patient is holding his mouth slightly open. Tenderness with palpation of the left jaw. GENERAL: This is a 66-year-old male, in no acute distress, nondiaphoretic, well- developed well-nourished. HEART: Regular rate and rhythm without murmurs gallops or rubs. LUNGS: Clear to auscultation bilaterally without wheezes, rales or rhonchi. No retractions or accessory muscle use. NEURO: Patient was alert and oriented to person place and time. Medical Decision & Procedures Medical Decision The patient was evaluated as above. He has had jaw dislocations in the past. He was unable to reduce his jaw tonight. Verbal consent was obtained to perform the procedure. Gentle downward traction was applied to the mandible and the jaw was easily reduced. The patient felt much better and was able to fully open and close his mouth. He was instructed to follow-up with his primary care provider as needed. He verbalized understanding of my assessment and treatment plan and was discharged home in good condition. Impression Primary Impression: Jaw dislocation Departure Information Dispostion Home / Self-Care Condition GOOD Referrals Yoandy Blunt Jr,D.O. (PCP) Patient Instructions My [facility] Additional Instructions For pain control, you can use the following [id number] medicines (if >12 yo): - Regular strength (325mg/tab) Tylenol (acetaminophen) 2 tabs every 4-6 hours as needed. Do not exceed 12 tablets in a 24 hour period. Avoid taking more than 4 grams (4000 mg) of Tylenol per day. This includes any other sources of acetaminophen you may take on a regular basis. - Regular strength (200 mg/tab) Advil (ibuprofen) 1-2 tabs every 4-6 hours as needed. Do not exceed a dose of 3200 mg per day. Follow-up with your primary care provider as needed. Return for recurrent dislocations. Problem Qualifiers Primary Impression: Jaw dislocation Encounter type: initial encounter Qualified Codes: S03.00XA - Dislocation of jaw, unspecified side, initial encounter
== END 2016-07-04 02:45 | disposition home or self-care (01) ==
LOC: C.EDB 01:56
DX: S03.00XA Dislocation of jaw, unspecified side, initial encounter (principal); Z79.899 Other long term (current) drug therapy; Z79.01 Long term (current) use of anticoagulants; Z85.841 Personal history of malignant neoplasm of brain; Z85.830 Personal history of malignant neoplasm of bone; Z85.05 Personal history of malignant neoplasm of liver; Z80.42 Family history of malignant neoplasm of prostate; Z80.0 Family history of malignant neoplasm of digestive organs; Z80.8 Family history of malignant neoplasm of other organs or systems; X58.XXXA Exposure to other specified factors, initial encounter; Y99.8 Other external cause status

== ENCOUNTER 2016-07-17 06:35 | Inpatient (IN) | payer BC ==
[~2016-07-17] VITALS: Ht 175.3 cm; Wt 68.6 kg
[~2016-07-17 06:35] MED LIST changes: -OMEGA; -VITD
[2016-07-17] MEDS ORDERED: SODIUM CHLORIDE 0.9% 1000ML 1,000 ML IV STA (07:02)
--- NOTE | 2016-07-17 07:10 | EMERGENCY ROOM VISIT NOTE ---
History Report prepared by Emre: Celia Sotelo Under the Supervision of: Dr. Bea Owens M.D. First contact with patient: 06:57 Chief Complaint: ALTERED MENTAL STATUS Stated Complaint: ALTERED MENTAL STATUS Nursing Triage Summary: Per EMS. stated Pt was laying on couch and needed to vomit, had been complaining of headache turned patient and he had rolled off couch. Pt was unresponsive for . Responded to painful stimuli for EMS. Pt moans and takes deep breath with some movement. History of Present Illness The patient is a 66 year old male who presents to the Emergency Room to be evaluated for persistent altered mental status over the past 5 hours. Per patient's , the patient has liver cancer with mets to the liver, spine, and brain. Early this morning, he was complaining of pain and nausea. His gave him oxycodone and he vomited afterwards and was unresponsive. She notes that he also seems weak and dehydrated. He had another episode of vomiting and slid to the floor from the bed. She states that he did not fall. Since then, he has not responded to her. The patient was on the liver transplant list and went for surgery last May, but they decided to forego the transplant because the surgeon felt that his cancer was too extensive. The patient has been on Nexavar and is currently on Opdivo. He had radiation treatments this past April and May. The patient follows with Dr. Griggs of oncology. Denies fevers or other complaints. History is somewhat limited secondary to altered mental status. Source of History: patient History Limited By: AMS Onset: 5 hours ago Position: other (psych) Quality: other (altered mental status) Timing: other (persistent) Associated Symptoms: + vomiting, + weakness, No fevers Review of Systems Limited secondary to altered mental status. 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 Family History Cancer (colon, prostate, neck (unknown specific type) and blood (unknown specific type)) Diabetes mellitus Heart disease Hypertension Social History Smoking Status: Former Smoker Alcohol Use: none Drug Use: none Marital Status: Housing Status: lives with family Occupation Status: retired Current/Historical Medications Scheduled Amlodipine (Norvasc), 10 MG PO DAILY Bupropion (Zyban), 150 MG PO BID Enoxaparin (Lovenox), 120 MG SQ DAILY Fentanyl (Fentanyl), PATCH Q72H Multivitamin (Multivitamin), 1 TAB PO DAILY Omeprazole (Prilosec), 20 MG PO DAILY Spironolactone (Aldactone), 50 MG PO BID Scheduled PRN Ondansetron Hcl (Zofran), 8 MG PO Q8 PRN for Nausea Allergies Coded Allergies: No Known Allergies (Verified , 07/04/16) Physical Exam Vital Signs Date Time Temp Pulse Resp B/P Pulse Ox O2 Delivery O2 Flow Rate FiO2 07/17/16 08:15 97 Room Air 07/17/16 08:00 73 16 172/106 96 Room Air 07/17/16 07:45 60 16 163/101 97 Room Air 07/17/16 07:01 59 16 164/87 97 07/17/16 06:45 54 07/17/16 06:39 36.4 61 16 173/89 97 Room Air Physical Exam Vital signs reviewed. General: Chronically ill-appearing, 66 year old male, thin, frail, in no significant distress. HEENT: No scleral icterus, eyes are slightly disconjugate, bile staining to the periorbital space, PERRLA, dry mucous membranes, neck supple. Atraumatic. Cardiovascular: Regular rate and rhythm, no extra sounds. Pulmonary: Clear to auscultation bilaterally, normal work of breathing. Abdomen: Soft, nontender, nondistended, positive bowel sounds. Musculoskeletal: Atraumatic, no peripheral edema. Neurologic: Nonverbal, does not withdrawal to painful stimuli of the upper extremities, does withdrawal to the Babinski reflex to the bilateral lower extremities. Skin: Warm, dry, no rash Medical Decision & Procedures ER Provider Diagnostic Interpretation: Radiology results as stated below per my review and radiologist interpretation: CT OF THE HEAD WITHOUT CONTRAST CLINICAL HISTORY: Altered mental status. Metastatic hepatocellular carcinoma. COMPARISON STUDY: Head CT June 26, 2016. CT DOSE: 691.05 mGy.cm TECHNIQUE: Helical axial images of the head were obtained without IV contrast. Automated exposure control was utilized for the study. FINDINGS: There has been interval development of a large hyperdense intraparenchymal hematoma within the left parietooccipital region extending into portions of the left temporal and frontal lobes since head CT of June 26, 2016. This hematoma measures approximately 9 x 5.3 cm. There is moderate associated vasogenic edema. Intraventricular extension of hemorrhage is noted with a large amount of hemorrhage within the left lateral ventricle and a small amount of hemorrhage within the right lateral ventricle and as well as hemorrhage within the third and fourth ventricles. There is marked associated mass effect with 2.4 cm of rightward midline shift, compression of the left lateral ventricle and entrapment of the right lateral ventricle. There is subfalcine shift and suspected uncal herniation. A small left-sided mixed attenuation subdural hematoma is new since prior exam as well. This measures 1.1 cm in thickness. A destructive occipital bone lesion with intracranial extension has increased in size, now measuring 4.9 x 4.9 cm. 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 IMPRESSION: 1. Interval development of a large acute intraparenchymal hematoma within the left parietooccipital region with moderate associated vasogenic edema and marked associated mass effect, including a 2.4 cm of rightward midline shift, compression of the left lateral ventricle, subfalcine shift and suspected uncal herniation. Intraventricular extension of hemorrhage. Findings discussed with Dr. Owens at time of dictation. 2. Interval development of a small mixed attenuation left subdural hematoma. 3. 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 Electronically signed by: Xander Strange M.D. 07/17/2016 8:02 AM Dictated Date/Time: 07/17/2016 7:52 AM CHEST ONE VIEW PORTABLE CLINICAL HISTORY: Altered mental status. Metastatic hepatocellular carcinoma. COMPARISON STUDY: Chest CT June 25, 2016. FINDINGS: There is no pneumothorax or pleural effusion. Innumerable pulmonary nodules consistent with metastases are again noted. These were shown on chest CT of June 25, 2016. There is no evidence for pulmonary edema. Cardiac size is normal. Mediastinal contours are stable. Mild right basilar opacity may reflect atelectasis. Several thoracic spine compression deformities are noted. IMPRESSION: 1. Redemonstration of innumerable pulmonary nodules consistent with metastases, as shown on chest CT of June 25, 2016. 2. Right basilar opacity which likely reflects atelectasis. Electronically signed by: Xander Strange M.D. 07/17/2016 7:22 AM Dictated Date/Time: 07/17/2016 7:20 AM Laboratory Results 07/17/16 06:50 Red Blood Count 3.95, Mean Corpuscular Volume 94.9, Mean Corpuscular Hemoglobin 32.7, Mean Corpuscular Hemoglobin Concent 34.4, Mean Platelet Volume 10.2, Neutrophils (%) (Auto) 87.0, Lymphocytes (%) (Auto) 5.0, Monocytes (%) (Auto) 7.1, Eosinophils (%) (Auto) 0.2, Basophils (%) (Auto) 0.4, Neutrophils # (Auto) 8.72, Lymphocytes # (Auto) 0.50, Monocytes # (Auto) 0.71, Eosinophils # (Auto) 0.02, Basophils # (Auto) 0.04 07/17/16 06:50 Test 07/17/16 06:50 07/17/16 07:25 07/17/16 07:27 White Blood Count 10.02 K/uL (4.8-10.8) Red Blood Count 3.95 M/uL (4.7-6.1) Hemoglobin 12.9 g/dL (14.0-18.0) Hematocrit 37.5 % (42-52) Mean Corpuscular Volume 94.9 fL (80-100) Mean Corpuscular Hemoglobin 32.7 pg (25-34) Mean Corpuscular Hemoglobin Concent 34.4 g/dl (32-36) Platelet Count 448 K/uL (130-400) Mean Platelet Volume 10.2 fL (7.4-10.4) Neutrophils (%) (Auto) 87.0 % Lymphocytes (%) (Auto) 5.0 % Monocytes (%) (Auto) 7.1 % Eosinophils (%) (Auto) 0.2 % Basophils (%) (Auto) 0.4 % Neutrophils # (Auto) 8.72 K/uL (1.4-6.5) Lymphocytes # (Auto) 0.50 K/uL (1.2-3.4) Monocytes # (Auto) 0.71 K/uL (0.11-0.59) Eosinophils # (Auto) 0.02 K/uL (0-0.5) Basophils # (Auto) 0.04 K/uL (0-0.2) RDW Standard Deviation 50.5 fL (36.4-46.3) RDW Coefficient of Variation 14.4 % (11.5-14.5) Immature Granulocyte % (Auto) 0.3 % Immature Granulocyte # (Auto) 0.03 K/uL (0.00-0.02) Echinocytes 1+ Prothrombin Time 13.6 SECONDS (9.0-12.0) Prothromb Time International Ratio 1.3 (0.9-1.1) Activated Partial Thromboplast Time 32.2 SECONDS (21.0-31.0) Partial Thromboplastin Ratio 1.2 Anion Gap 15.0 mmol/L (3-11) Est Creatinine Clear Calc Drug Dose 55.7 ml/min Estimated GFR () 66.8 Estimated GFR (Non- 57.7 BUN/Creatinine Ratio 16.4 (10-20) Calcium Level 9.5 mg/dl (8.5-10.1) Magnesium Level 2.1 mg/dl (1.8-2.4) Total Bilirubin 2.2 mg/dl (0.2-1) Direct Bilirubin 1.3 mg/dl (0-0.2) Aspartate Amino Transf (AST/SGOT) 149 U/L (15-37) Alanine Aminotransferase (ALT/SGPT) 114 U/L (12-78) Alkaline Phosphatase 774 U/L (45-117) Total Protein 7.1 gm/dl (6.4-8.2) Albumin 2.9 gm/dl (3.4-5.0) Ammonia < 10.0 umol/L (11-32) Bedside Troponin I 0.000 ng/ml (0-0.045) Laboratory results per my review. Medications Administered Medications (Trade) Dose Ordered Sig/Reinaldo Route Start Time Stop Time Status Last Admin Dose Admin Sodium Chloride (Nss 1000ml) 1,000 ml @ 125 mls/hr Q8H STAT IV 07/17/16 07:02 07/17/16 09:19 DC 07/17/16 08:18 125 MLS/HR ECG Indication: altered mental status Rate (beats per minute): 55 Rhythm: sinus bradycardia Findings: PAC, no acute ischemic change, other (some baseline artifact) ED Course 0658: Past medical records reviewed. The patient was evaluated in room B6. A complete history and physical examination was performed. 0702: Ordered NSS 1000 ml @ 125 mls/hr IV. 0755: I discussed laboratory and radiographic results with the patient's . She verbalized agreement of the treatment plan. 0806: I discussed the case with Dr. Barry CELAYA Hospitalist. The patient will be evaluated for further management. Medical Decision Differential diagnosis: metabolic abnormality, intracranial hemorrhage, intracranial mass, seizure, dehydration, infectious etiology, medication effect , cardiac arrhythmia. This patient was evaluated and appeared to be in no significant distress. IV access was obtained and laboratory work was drawn. Patient was placed on the school bus monitor and found to be in a sinus bradycardia. Patient was examined and shows very little sign of purposeful interaction. CT scan of the head was performed and is significant for intracranial parenchymal hemorrhage with intraventricular extension. The patient's was notified of the findings. Given the patient's metastatic cancer, she has elected to proceed with comfort measures. The hospitalist service was contacted. The charge nurses in the room with the patient's . He will be admitted for comfort care. Consults Time Called: 08 Consulting Physician: Dr. Barry CELAYA Hospitalist Returned Call: 08 I discussed the case with him. The patient will be evaluated for further management. Impression Primary Impression: Intracranial hemorrhage Additional Impressions: Metastatic cancer Brain stem herniation Scribe Attestation The scribe's documentation has been prepared under my direction and personally reviewed by me in its entirety. I confirm that the note above accurately reflects all work, treatment, procedures, and medical decision making performed by me. Departure Information Dispostion Being Evaluated By Hospitalist Referrals Yoandy Blunt Jr,D.O. (PCP) Patient Instructions My [facility] Problem Qualifiers
[2016-07-17 07:13] LABS: HEMATOCRIT 37.5 % (42-52); MEAN CELL VOLUME 94.9 fL (80-100); MEAN CORPUSCULAR HEMOGLOBIN 32.7 pg (25-34); MEAN CORPUSCULAR HGB CONC 34.4 g/dl (32-36); MEAN PLATELET VOLUME 10.2 fL (7.4-10.4); PLATELET COUNT 448 K/uL (130-400); RED BLOOD COUNT 3.95 M/uL (4.7-6.1); WHITE BLOOD COUNT 10.02 K/uL (4.8-10.8)
--- NOTE | 2016-07-17 07:24 | DIAGNOSTIC IMAGING REPORT ---
CHEST ONE VIEW PORTABLE CLINICAL HISTORY: Altered mental status. Metastatic hepatocellular carcinoma. COMPARISON STUDY: Chest CT June 25, 2016. FINDINGS: There is no pneumothorax or pleural effusion. Innumerable pulmonary nodules consistent with metastases are again noted. These were shown on chest CT of June 25, 2016. There is no evidence for pulmonary edema. Cardiac size is normal. Mediastinal contours are stable. Mild right basilar opacity may reflect atelectasis. Several thoracic spine compression deformities are noted. IMPRESSION: 1. Redemonstration of innumerable pulmonary nodules consistent with metastases, as shown on chest CT of June 25, 2016. 2. Right basilar opacity which likely reflects atelectasis. Electronically signed by: Xander Strange M.D. 07/17/2016 7:22 AM Dictated Date/Time: 07/17/2016 7:20 AM
[2016-07-17 07:25] LABS: BUN/CREATININE RATIO 16.4 (10-20); CALCIUM 9.5 mg/dl (8.5-10.1); CREATININE 1.3 mg/dl (0.60-1.40); INR 1.3 (0.9-1.1); MAGNESIUM 2.1 mg/dl (1.8-2.4); PARTIAL THROMBOPLASTIN RATIO 1.2; POTASSIUM 4.2 mmol/L (3.5-5.1); PROTHROMBIN TIME (PATIENT) 13.6 SECONDS (9.0-12.0)
[2016-07-17 07:52] LABS: BASO % 0.4 %; BASO ABS # 0.04 K/uL (0-0.2); COMPLETE YES; ECHINOCYTES 1+; EOS % 0.2 %; IG% 0.3 %; MONO % 7.1 %
--- NOTE | 2016-07-17 08:03 | DIAGNOSTIC IMAGING REPORT ---
CT OF THE HEAD WITHOUT CONTRAST CLINICAL HISTORY: Altered mental status. Metastatic hepatocellular carcinoma. COMPARISON STUDY: Head CT June 26, 2016. CT DOSE: 691.05 mGy.cm TECHNIQUE: Helical axial images of the head were obtained without IV contrast. Automated exposure control was utilized for the study. FINDINGS: There has been interval development of a large hyperdense intraparenchymal hematoma within the left parietooccipital region extending into portions of the left temporal and frontal lobes since head CT of June 26, 2016. This hematoma measures approximately 9 x 5.3 cm. There is moderate associated vasogenic edema. Intraventricular extension of hemorrhage is noted with a large amount of hemorrhage within the left lateral ventricle and a small amount of hemorrhage within the right lateral ventricle and as well as hemorrhage within the third and fourth ventricles. There is marked associated mass effect with 2.4 cm of rightward midline shift, compression of the left lateral ventricle and entrapment of the right lateral ventricle. There is subfalcine shift and suspected uncal herniation. A small left-sided mixed attenuation subdural hematoma is new since prior exam as well. This measures 1.1 cm in thickness. A destructive occipital bone lesion with intracranial extension has increased in size, now measuring 4.9 x 4.9 cm. 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 IMPRESSION: 1. Interval development of a large acute intraparenchymal hematoma within the left parietooccipital region with moderate associated vasogenic edema and marked associated mass effect, including a 2.4 cm of rightward midline shift, compression of the left lateral ventricle, subfalcine shift and suspected uncal herniation. Intraventricular extension of hemorrhage. Findings discussed with Dr. Owens at time of dictation. 2. Interval development of a small mixed attenuation left subdural hematoma. 3. 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 Electronically signed by: Xander Strange M.D. 07/17/2016 8:02 AM Dictated Date/Time: 07/17/2016 7:52 AM
[2016-07-17 08:15] VITALS: O2SAT 97; Ht 175.3 cm; Wt 68.6 kg
[2016-07-17] MEDS ORDERED: ONDANSETRON INJ 2 MG/ML 2 ML VIAL IV PRN (08:45)
[2016-07-17] MEDS ORDERED: LORAZEPAM 2 MG/ML 1 ML VIAL IV PRN (08:45)
[2016-07-17 09:00] VITALS: O2SAT 96
[2016-07-17 09:10] VITALS: BP 169/99; PULSE 67; TEMP 36.8; O2SAT 97
[2016-07-17] MEDS ORDERED: LORAZEPAM INJ 1 MG in SYRINGE 0.5 ML IV PRN (09:30)
[2016-07-17] MEDS ORDERED: SCOPOLAMINE 1.5 MG TDSY TD SCH (09:30)
[2016-07-17] MEDS ORDERED: MoRPHine SULFATE 2 MG/ML CARP IV PRN (10:15)
--- NOTE | 2016-07-17 13:34 | Death Pronouncement Note ---
Pronouncement Note Date & Time of Jul 17, 2016. 1240 Pronouncement At time of pronouncement the patients pupils were fixed and dilated, there was no spontaneous respiratory effort, no palpable pulse, no audible heart tones, and no response to pain or voice. certificate completed. Condolences offered to spouse. Adama Munoz MD
--- NOTE | 2016-07-17 13:38 | History and Physical ---
History & Physical Date & Time of Service: Jul 17, 2016 at 13:26 Chief Complaint: Intracranial Bleed Primary Care Physician: Yoandy Blunt Jr,D.O. History of Present Illness Source: family, spouse, hospital records, other (ER doc) This patient is an unfortunate 66-year-old male with a history of metastatic liver cancer to his brain, hypertension and pulmonary embolism that presented to the emergency department this morning with 2 episodes of emesis and then he went unresponsive. The patient apparently got up and was complaining of pain in the middle the night. The , Heidy, is at the bedside. She reports getting up to give him a pain pill in the middle the night. A few hours later, he began vomiting. When he went unresponsive, she called the ambulance. The patient was undergoing treatment with chemotherapy for metastatic liver cancer. In the emergency department, a workup was performed including a CT of the head revealed a large left-sided parietal bleed. There is associated mass affect with a 2 cm shift. The patient does also take Lovenox injections for a history of PE. Decision has been made to admit the patient for comfort measures only. Past Medical/Surgical History Medical Problems: (1) Metastatic hepatocellular carcinoma to brain Permanent Comment: MRI of the brain revealed soft tissue destructive component of the occipital bone along with a enhancing nodule representing an exophytic extension of the lesion versus a second adjacent lesion. Status post completion of radiation therapy 05/07/2016 received 3000 cGy Status: Chronic Family History Cancer (colon, prostate, neck (unknown specific type) and blood (unknown specific type)) Diabetes mellitus Heart disease Hypertension Social History Smoking Status: Former Smoker Drug Use: none Marital Status: Housing status: lives with significant other Occupational Status: retired Multi-Drug Resistant Organisms History of MDRO: No Allergies Coded Allergies: No Known Allergies (Verified , 07/04/16) Home Medications Scheduled Amlodipine (Norvasc), 10 MG PO DAILY Bupropion (Zyban), 150 MG PO BID Enoxaparin (Lovenox), 120 MG SQ DAILY Fentanyl (Fentanyl), PATCH Q72H Multivitamin (Multivitamin), 1 TAB PO DAILY Omeprazole (Prilosec), 20 MG PO DAILY Spironolactone (Aldactone), 50 MG PO BID Scheduled PRN Ondansetron Hcl (Zofran), 8 MG PO Q8 PRN for Nausea Review of Systems Unable to obtain as the patient is obtunded Physical Exam Vital Signs Date Time Temp Pulse Resp B/P Pulse Ox O2 Delivery O2 Flow Rate FiO2 07/17/16 09:10 36.8 67 20 169/99 97 Room Air 07/17/16 09:00 70 16 163/93 96 Room Air 07/17/16 08:15 97 Room Air 07/17/16 08:00 73 16 172/106 96 Room Air 07/17/16 07:45 60 16 163/101 97 Room Air 07/17/16 07:01 59 16 164/87 97 07/17/16 06:45 54 07/17/16 06:39 36.4 61 16 173/89 97 Room Air General Appearance: + pertinent finding (obtunded) Head: + pertinent finding (chronically ill in appearance. Tissue wasting noted.) Eyes: + pertinent finding (pupils are fixed and dilated.) Respiratory/Chest: lungs clear Cardiovascular: + pertinent finding (occasionally irregular. No murmur.) Abdomen/GI: normal bowel sounds (bowel sounds present, but hypoactive.), soft, + pertinent finding (hepatomegaly appreciated.) Extremities/Musculoskelatal: no pedal edema Neurologic/Psych: + pertinent finding (obtunded) Skin: + pertinent finding (jaundice) Diagnostics Laboratory Results 07/17/16 06:50 Red Blood Count 3.95, Mean Corpuscular Volume 94.9, Mean Corpuscular Hemoglobin 32.7, Mean Corpuscular Hemoglobin Concent 34.4, Mean Platelet Volume 10.2, Neutrophils (%) (Auto) 87.0, Lymphocytes (%) (Auto) 5.0, Monocytes (%) (Auto) 7.1, Eosinophils (%) (Auto) 0.2, Basophils (%) (Auto) 0.4, Neutrophils # (Auto) 8.72, Lymphocytes # (Auto) 0.50, Monocytes # (Auto) 0.71, Eosinophils # (Auto) 0.02, Basophils # (Auto) 0.04 Test 07/17/16 06:50 07/17/16 07:25 07/17/16 07:27 White Blood Count 10.02 K/uL (4.8-10.8) Red Blood Count 3.95 M/uL (4.7-6.1) Hemoglobin 12.9 g/dL (14.0-18.0) Hematocrit 37.5 % (42-52) Mean Corpuscular Volume 94.9 fL (80-100) Mean Corpuscular Hemoglobin 32.7 pg (25-34) Mean Corpuscular Hemoglobin Concent 34.4 g/dl (32-36) Platelet Count 448 K/uL (130-400) Mean Platelet Volume 10.2 fL (7.4-10.4) Neutrophils (%) (Auto) 87.0 % Lymphocytes (%) (Auto) 5.0 % Monocytes (%) (Auto) 7.1 % Eosinophils (%) (Auto) 0.2 % Basophils (%) (Auto) 0.4 % Neutrophils # (Auto) 8.72 K/uL (1.4-6.5) Lymphocytes # (Auto) 0.50 K/uL (1.2-3.4) Monocytes # (Auto) 0.71 K/uL (0.11-0.59) Eosinophils # (Auto) 0.02 K/uL (0-0.5) Basophils # (Auto) 0.04 K/uL (0-0.2) RDW Standard Deviation 50.5 fL (36.4-46.3) RDW Coefficient of Variation 14.4 % (11.5-14.5) Immature Granulocyte % (Auto) 0.3 % Immature Granulocyte # (Auto) 0.03 K/uL (0.00-0.02) Echinocytes 1+ Prothrombin Time 13.6 SECONDS (9.0-12.0) Prothromb Time International Ratio 1.3 (0.9-1.1) Activated Partial Thromboplast Time 32.2 SECONDS (21.0-31.0) Partial Thromboplastin Ratio 1.2 Anion Gap 15.0 mmol/L (3-11) Est Creatinine Clear Calc Drug Dose 55.7 ml/min Estimated GFR () 66.8 Estimated GFR (Non- 57.7 BUN/Creatinine Ratio 16.4 (10-20) Calcium Level 9.5 mg/dl (8.5-10.1) Magnesium Level 2.1 mg/dl (1.8-2.4) Total Bilirubin 2.2 mg/dl (0.2-1) Direct Bilirubin 1.3 mg/dl (0-0.2) Aspartate Amino Transf (AST/SGOT) 149 U/L (15-37) Alanine Aminotransferase (ALT/SGPT) 114 U/L (12-78) Alkaline Phosphatase 774 U/L (45-117) Total Protein 7.1 gm/dl (6.4-8.2) Albumin 2.9 gm/dl (3.4-5.0) Ammonia < 10.0 umol/L (11-32) Bedside Troponin I 0.000 ng/ml (0-0.045) Results Past 24 Hours Test 07/17/16 06:50 07/17/16 07:25 07/17/16 07:27 Range/Units White Blood Count 10.02 4.8-10.8 K/uL Red Blood Count 3.95 4.7-6.1 M/uL Hemoglobin 12.9 14.0-18.0 g/dL Hematocrit 37.5 42-52 % Mean Corpuscular Volume 94.9 80-100 fL Mean Corpuscular Hemoglobin 32.7 25-34 pg Mean Corpuscular Hemoglobin Concent 34.4 32-36 g/dl Platelet Count 448 130-400 K/uL Mean Platelet Volume 10.2 7.4-10.4 fL Neutrophils (%) (Auto) 87.0 % Lymphocytes (%) (Auto) 5.0 % Monocytes (%) (Auto) 7.1 % Eosinophils (%) (Auto) 0.2 % Basophils (%) (Auto) 0.4 % Neutrophils # (Auto) 8.72 1.4-6.5 K/uL Lymphocytes # (Auto) 0.50 1.2-3.4 K/uL Monocytes # (Auto) 0.71 0.11-0.59 K/uL Eosinophils # (Auto) 0.02 0-0.5 K/uL Basophils # (Auto) 0.04 0-0.2 K/uL RDW Standard Deviation 50.5 36.4-46.3 fL RDW Coefficient of Variation 14.4 11.5-14.5 % Immature Granulocyte % (Auto) 0.3 % Immature Granulocyte # (Auto) 0.03 0.00-0.02 K/uL Echinocytes 1+ Prothrombin Time 13.6 9.0-12.0 SECONDS Prothromb Time International Ratio 1.3 0.9-1.1 Activated Partial Thromboplast Time 32.2 21.0-31.0 SECONDS Partial Thromboplastin Ratio 1.2 Sodium Level 138 136-145 mmol/L Potassium Level 4.2 3.5-5.1 mmol/L Chloride Level 105 98-107 mmol/L Carbon Dioxide Level 18 21-32 mmol/L Anion Gap 15.0 3-11 mmol/L Blood Urea Nitrogen 21 7-18 mg/dl Creatinine 1.30 0.60-1.40 mg/dl Est Creatinine Clear Calc Drug Dose 55.7 ml/min Estimated GFR () 66.8 Estimated GFR (Non- 57.7 BUN/Creatinine Ratio 16.4 10-20 Random Glucose 143 70-99 mg/dl Calcium Level 9.5 8.5-10.1 mg/dl Magnesium Level 2.1 1.8-2.4 mg/dl Total Bilirubin 2.2 0.2-1 mg/dl Direct Bilirubin 1.3 0-0.2 mg/dl Aspartate Amino Transf (AST/SGOT) 149 15-37 U/L Alanine Aminotransferase (ALT/SGPT) 114 12-78 U/L Alkaline Phosphatase 774 45-117 U/L Total Protein 7.1 6.4-8.2 gm/dl Albumin 2.9 3.4-5.0 gm/dl Ammonia < 10.0 11-32 umol/L Bedside Troponin I 0.000 0-0.045 ng/ml Diagnostic Radiology CT OF THE HEAD WITHOUT CONTRAST CLINICAL HISTORY: Altered mental status. Metastatic hepatocellular carcinoma. COMPARISON STUDY: Head CT June 26, 2016. CT DOSE: 691.05 mGy.cm TECHNIQUE: Helical axial images of the head were obtained without IV contrast. Automated exposure control was utilized for the study. FINDINGS: There has been interval development of a large hyperdense intraparenchymal hematoma within the left parietooccipital region extending into portions of the left temporal and frontal lobes since head CT of June 26, 2016. This hematoma measures approximately 9 x 5.3 cm. There is moderate associated vasogenic edema. Intraventricular extension of hemorrhage is noted with a large amount of hemorrhage within the left lateral ventricle and a small amount of hemorrhage within the right lateral ventricle and as well as hemorrhage within the third and fourth ventricles. There is marked associated mass effect with 2.4 cm of rightward midline shift, compression of the left lateral ventricle and entrapment of the right lateral ventricle. There is subfalcine shift and suspected uncal herniation. A small left-sided mixed attenuation subdural hematoma is new since prior exam as well. This measures 1.1 cm in thickness. A destructive occipital bone lesion with intracranial extension has increased in size, now measuring 4.9 x 4.9 cm. 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 IMPRESSION: 1. Interval development of a large acute intraparenchymal hematoma within the left parietooccipital region with moderate associated vasogenic edema and marked associated mass effect, including a 2.4 cm of rightward midline shift, compression of the left lateral ventricle, subfalcine shift and suspected uncal herniation. Intraventricular extension of hemorrhage. Findings discussed with Dr. Owens at time of dictation. 2. Interval development of a small mixed attenuation left subdural hematoma. 3. 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 Electronically signed by: Xander Strange M.D. 07/17/2016 8:02 AM Dictated Date/Time: 07/17/2016 7:52 AM The status of this report is Signed. Draft = Not yet reviewed or approved by Radiologist. Signed = Reviewed and approved by Radiologist. <AttendingPhy></AttendingPhy> <FamilyPhy>Yoandy Blunt Jr,D.O.</FamilyPhy> < PrimaryPhy>Yoandy Blunt Jr,D.O.</PrimaryPhy> <UnitNumber>[id number]</ UnitNumber> <VisitNumber>[id number]</VisitNumber> Impression Assessment and Plan Unfortunate 66-year-old gentleman with a history of metastatic liver CA to brain presented with vomiting and then altered mental status. Found to have large left-sided parietal bleed with associated midline shift per CT Intracranial hemorrhage in the setting of metastatic hepatocellular carcinoma--> brain -Admit to oncology for comfort measures only -Ativan 1 mg IV every 4 hours as needed for agitation -I will hold off on a morphine drip per patient's 's wishes -Scopolamine patch -Likely pt will shortly CODE STATUS -LEVEL V DO NO RESUSCITATE Level of Care Oncology Advanced Directives Existing Living Will: No Existing Power of Youth Counselor: No Resuscitation Status DO NOT RESUSCITATE VTE Prophylaxis VTE Risk Assessment Done? Y/N: Yes Risk Level: Low Note Attending Attestation & Admission Note: Pt seen/examined, chart reviewed, care plan d/w MARBELLA Barrientos. I agree w/ the ford components of her admission documentation. 66yo male with stage 4 hepatocellular carcinoma with mets to the brain who presented with emesis and altered MS. At ER presentation head CT showed intracranial hemorrhage with mass effect, midline shift, and findings worrisome for uncal herniation. After discussion with his she was agreeable to comfort care measures. PMH, PSH, allergies, meds, sochx, famhx, ros - reviewed vitals stable, BP high gen - obtunded, cachectic eyes - pupils fixed & dilated neck - no JVD heart - RRR, s1 s2 lungs - tachypneic, CTA b/l abd - severe hepatomegaly with irregular contour and very hard quality to liver ; BS+, NT, ND ext - no edema neuro - +posturing, +babinski's b/l A/P: 1. encephalopathy 2nd to severe intracranial hemorrhage with uncal herniation 2. stage 4 hepatocellular carcinoma admit for comfort care measures anticipate his within a few hours support given to Adama Munoz MD
[2016-07-17] MEDS ORDERED: CHECK SCOPOLAMINE PATCH PLACEMENT SCH (16:00)
--- NOTE | 2016-07-17 21:45 | Death Summary ---
Summary of Admission Date Jul 17, 2016 at 08:32 Date & Time of Jul 17, 2016. 1240 Cause of intracranial hemorrhage Secondary Diagnoses 1. stage 4 hepatocellular carcinoma 2. encephalopathy 2nd to intracranial hemorrhage 3. h/o PE 4. h/o HTN Hospital Course 66yo male with known stage 4 hepatocellular carcinoma with mets to the brain who presented from home after several episodes of vomiting followed by unresponsiveness/altered mental status. At time of ER presentation he underwent CT head demonstrating a very large intracerebral hemorrhage causing severe midline shift, mass effect, and probable uncal herniation. After discussion with his he was made comfort care status. He was admitted to the medical floor for comfort care measures and within a short period of time he passed peacefully at 1240 on 07/17/16. Copy To Yoandy Blunt Jr,D.O.
== END 2016-07-17 16:50 | disposition expired | DRG 64 ==
LOC: ENRESERVTM → ENRESERVDT → EDBD 06:35 → C.EDB 06:36 → C.4E 08:32
PROVIDERS: ADMIT Internal Medicine; ATTEND Internal Medicine
DX: I62.9 Nontraumatic intracranial hemorrhage, unspecified (principal); G93.40 Encephalopathy, unspecified; G93.5 Compression of brain; C79.31 Secondary malignant neoplasm of brain; C22.0 Liver cell carcinoma; C79.51 Secondary malignant neoplasm of bone; I10 Essential (primary) hypertension; Z86.711 Personal history of pulmonary embolism; Z51.5 Encounter for palliative care; Z66 Do not resuscitate; Z87.891 Personal history of nicotine dependence; Z79.01 Long term (current) use of anticoagulants; Z79.891 Long term (current) use of opiate analgesic; Z79.899 Other long term (current) drug therapy